=== PATIENT | female | born 1940 | race Caucasian/White ===

== ENCOUNTER 2016-09-20 11:03 | Inpatient (IN) | payer MEDICARE, OTHER ==
[~2016-09-20] VITALS: Ht 154.9 cm; Wt 73.1 kg
[2016-09-20] VITALS (10 sets, daily range): BP systolic 101–168; BP diastolic 45–75
[2016-09-20 11:39] LABS: Basophils # (auto) 0 uL; Basophils % (auto) 0.2 % (0.0-2.0); DEFINITIVE VIEW TRANSMISSION; Eosinophils # (auto) 0 uL; Eosinophils % (auto) 0.1 % (0.0-7.0); Hematocrit 16.4 % (36.0-46.0); Lymphocytes # (auto) 1.6 uL; Lymphocytes % (auto) 15.8 % (10.0-50.0); Mean Corpuscular Hemoglobin 32.5 pg (28.0-32.0); Mean Corpuscular Hgb Conc. 34.7 g/dL (32.0-36.0); Mean Corpuscular Volume 93.7 fL (80.0-100.0); Mean Platelet Volume 7.3 fL (7.4-10.4); Monocytes # (auto) 0.5 uL; Monocytes % (auto) 4.8 % (0.0-12.0); Neutrophils % (auto) 79.1 % (37.0-80.0); Platelet Count (auto) 238 10^3/uL (140-450); Red Cell Distribution Width 13.2 % (11.6-16.0); White Blood Cell 10.1 10^3/uL (4.4-10.8)
[2016-09-20 11:53] LABS: Hemoglobin 5.7 g/dL (12.2-16.2)
[2016-09-20 12:00] LABS: Albumin 2.8 g/dL (3.4-5.0); Alkaline Phosphatase 38 U/L (45-117); Anion Gap 10 (5-15); Aspartate Aminotransferase 12 U/L (15-37); BUN/Creatinine Ratio 76.6; Bilirubin, Total 0.1 mg/dL (0.2-1.0); Blood Urea Nitrogen 36 mg/dL (7-18); Calcium 8.2 mg/dL (8.5-10.1); Carbon Dioxide 22 mmol/L (21-32); Chloride 111 mmol/L (98-107); GFR African American 166 mL/min; GFR Non-African American 137 mL/min; Glucose 137 mg/dL (74-106); Magnesium 2.4 mg/dL (1.6-2.6); Potassium 3.6 mmol/L (3.5-5.1); Sodium 143 mmol/L (136-145); Total Protein 5.1 g/dL (6.4-8.2)
[2016-09-20 13:31] LABS: Urine Bilirubin Negative (Negative); Urine Color Yellow (Yellow); Urine Glucose Normal (Normal); Urine Ketone Negative (Negative); Urine Nitrite Negative (Negative); Urine RBC <1 /hpf (0 - 4); Urine Squamous Epithelial Cell FEW /hpf (<5); Urine Urobilinogen Normal (Negative); Urine pH 5.5 (5.0-8.0)
[2016-09-20 13:32] LABS: Urine Blood 1+ /uL (Negative)
[2016-09-20] MEDS ORDERED: HYDROcodone-ACET 5/325MG TAB PO PRN (15:30)
[2016-09-20] MEDS ORDERED: ONDANSETRON HCL 4 MG/2 ML VIAL IV PRN (15:30)
[2016-09-20] MEDS ORDERED: HYDROmorphone HCL 2 MG/ML VL IV PRN (15:30)
[2016-09-20] MEDS ORDERED: LEVOFLOXACIN 500MG 100 ML IV ONE (15:45)
[2016-09-20 21:26] LABS: Hematocrit 22.9 % (36.0-46.0)
[2016-09-20] MEDS: SODIUM CHLORIDE 0.9% 1,000 ML IV SCH (22:00)
[2016-09-20] MEDS: PANTOPRAZOLE SODIUM 40 MG/10 ML VIAL IV SCH (22:40)
[2016-09-20] MEDS ORDERED: MULT-228 PO (23:18)
[2016-09-21] VITALS (8 sets, daily range): BP systolic 125–148; BP diastolic 56–79
[2016-09-21] MEDS: SODIUM CHLORIDE 0.9% 1,000 ML IV SCH ×3 (01:30→21:30)
[2016-09-21 06:39] LABS: Basophils # (auto) 0 uL; Basophils % (auto) 0.6 % (0.0-2.0); Eosinophils # (auto) 0.1 uL; Eosinophils % (auto) 0.9 % (0.0-7.0); Hematocrit 28.5 % (36.0-46.0); Hemoglobin 9.7 g/dL (12.2-16.2); Lymphocytes # (auto) 2.3 uL; Lymphocytes % (auto) 27.3 % (10.0-50.0); Mean Corpuscular Hemoglobin 30.9 pg (28.0-32.0); Mean Corpuscular Volume 90.9 fL (80.0-100.0); Mean Platelet Volume 7.5 fL (7.4-10.4); Monocytes # (auto) 0.6 uL; Neutrophils # (auto) 5.5 uL; Neutrophils % (auto) 64.2 % (37.0-80.0); Platelet Count (auto) 179 10^3/uL (140-450); White Blood Cell 8.5 10^3/uL (4.4-10.8)
[2016-09-21 06:55] LABS: INR 1.04 (0.9-1.15); Partial Thromboplastin Time 20.5 sec (22.64-33.71); Prothrombin Time 11.3 sec (9.37-12.3)
[2016-09-21 06:56] LABS: BUN/Creatinine Ratio 66.7; Potassium 3.8 mmol/L (3.5-5.1)
[2016-09-21] MEDS ORDERED: SODIUM CHLORIDE LOCK 10 ML ONE (08:34)
[2016-09-21] MEDS ORDERED: diphenhdrAMINE HCL 50 MG/1 ML VL ONE (08:34)
[2016-09-21] MEDS ORDERED: LIDOCAINE VISCOUS 2% 15ML UD ONE (08:34)
[2016-09-21] MEDS ORDERED: PANTOPRAZOLE SODIUM 40 MG/10 ML VIAL IV SCH (10:00)
[2016-09-21] MEDS: PANTOPRAZOLE SODIUM 40 MG/10 ML VIAL IV SCH (10:15)
[2016-09-21] MEDS ORDERED: BENZOCAINE (DENTAL) 20 % SPRAY 60ML MT ONE (14:10)
[2016-09-21] MEDS: MIDAZOLAM HCL 5 MG/ML-1ML VIAL ONE ×2 (14:14→14:18)
[2016-09-21] MEDS: fentaNYL CITRATE 100 MCG/2 ML VL ONE ×2 (14:14→14:18)
[2016-09-21] MEDS ORDERED: PANTOPRAZOLE 40 MG TAB PO ONE (14:45)
[2016-09-21] MEDS: PANTOPRAZOLE 40 MG TAB PO SCH (21:31)
[2016-09-22] VITALS (7 sets, daily range): BP systolic 111–135; BP diastolic 54–72
[2016-09-22] MEDS: SODIUM CHLORIDE 0.9% 1,000 ML IV SCH ×2 (07:30→17:30)
[2016-09-22] MEDS: PANTOPRAZOLE 40 MG TAB PO SCH ×2 (10:13→20:34)
[2016-09-22] MEDS: ACETAMINOPHEN 325 MG TAB PO PRN (20:35)
[2016-09-23] MEDS: ACETAMINOPHEN 325 MG TAB PO PRN (03:57)
[2016-09-23] MEDS: SODIUM CHLORIDE 0.9% 1,000 ML IV SCH (03:58)
[2016-09-23 05:00] VITALS: BP 129/62
[2016-09-23 07:17] LABS: Basophils # (auto) 0 uL; Basophils % (auto) 0.6 % (0.0-2.0); DEFINITIVE VIEW TRANSMISSION; Eosinophils # (auto) 0.2 uL; Eosinophils % (auto) 3.2 % (0.0-7.0); Hematocrit 20.4 % (36.0-46.0); Hemoglobin 7.1 g/dL (12.2-16.2); Lymphocytes # (auto) 1.7 uL; Lymphocytes % (auto) 31.2 % (10.0-50.0); Mean Corpuscular Hemoglobin 31.9 pg (28.0-32.0); Mean Corpuscular Hgb Conc. 34.5 g/dL (32.0-36.0); Mean Corpuscular Volume 92.6 fL (80.0-100.0); Mean Platelet Volume 7.4 fL (7.4-10.4); Monocytes # (auto) 0.3 uL; Neutrophils # (auto) 3.2 uL; Platelet Count (auto) 180 10^3/uL (140-450); White Blood Cell 5.5 10^3/uL (4.4-10.8)
[2016-09-23 07:25] LABS: Albumin 2.3 g/dL (3.4-5.0); BUN/Creatinine Ratio 51.4; Bilirubin, Total 0.4 mg/dL (0.2-1.0); Calcium 7.8 mg/dL (8.5-10.1); Potassium 3.2 mmol/L (3.5-5.1); Total Protein 4.3 g/dL (6.4-8.2)
[2016-09-23 09:14] VITALS: BP 137/71
[2016-09-23] MEDS: PANTOPRAZOLE 40 MG TAB PO SCH (10:00)
[2016-09-23 12:24] VITALS: BP 137/71
[2016-09-23] MEDS ORDERED: POTASSIUM CHL 20 Meq TABLET PO ONE (12:30)
== END 2016-09-23 13:25 | disposition home or self-care (01) | DRG 377 ==
LOC: EDBD 11:03 → ER 11:10 → TELE 11:11 → DOU IN ICU 21:34 → TELE-CENTR 09-22 12:18
PROVIDERS: ADMIT Nurse Practitioner Family; ATTEND Internal Medicine
PROC: 30233N1 Transfusion of Nonautologous Red Blood Cells into Peripheral Vein, Percutaneous Approach (ICD-10-PCS; 2016-09-20)
PROC: 0DB68ZX Excision of Stomach, Via Natural or Artificial Opening Endoscopic, Diagnostic (ICD-10-PCS; principal; 2016-09-21 14:10)
DX: K25.4 Chronic or unspecified gastric ulcer with hemorrhage (principal); J18.1 Lobar pneumonia, unspecified organism; D62 Acute posthemorrhagic anemia; E46 Unspecified protein-calorie malnutrition; K29.81 Duodenitis with bleeding; K64.9 Unspecified hemorrhoids; K29.80 Duodenitis without bleeding; K44.9 Diaphragmatic hernia without obstruction or gangrene; G89.29 Other chronic pain; Z60.2 Problems related to living alone; M54.9 Dorsalgia, unspecified; Z88.6 Allergy status to analgesic agent; Z88.4 Allergy status to anesthetic agent; Z85.3 Personal history of malignant neoplasm of breast; Z68.30 Body mass index [BMI] 30.0-30.9, adult; Z88.0 Allergy status to penicillin; Z88.2 Allergy status to sulfonamides; Z90.710 Acquired absence of both cervix and uterus; Z90.10 Acquired absence of unspecified breast and nipple; Z98.51 Tubal ligation status; Z90.49 Acquired absence of other specified parts of digestive tract
CPT/HCPCS: 36415; 36430; 71010; 74176; 80048; 80053; 81001; 82962; 83735; 84443; 84484; 85014; 85018; 85025; 85610; 85730; 86850; 86900; 86901; 86920; 87040; 87081; 93005; 94761; 96365; C9113; J1956; J2250